=== PATIENT | female | born 1965 | race Caucasian/White ===

== ENCOUNTER 2018-12-25 08:39 | Outpatient (CLI) | payer OTHER | END 2018-12-25 23:59 | disposition home or self-care (01) | LOC: CFH 08:39 | PROVIDERS: ATTEND Obstetrics & Gynecology | DX: Z12.31 Encounter for screening mammogram for malignant neoplasm of breast (principal) | CPT/HCPCS: 77063; 77067 ==

== ENCOUNTER → 2020-02-25 | Outpatient (CLI) | payer OTHER | END | disposition home or self-care (01) | LOC: CFH 10:13 | PROVIDERS: ATTEND Obstetrics & Gynecology | DX: Z12.31 Encounter for screening mammogram for malignant neoplasm of breast (principal) | CPT/HCPCS: 77063; 77067 ==